=== PATIENT | female | born 1945 | race Caucasian/White ===

== ENCOUNTER → 2017-10-24 | Outpatient (CLI) | payer MEDICARE | LOC: CT 12:27 | PROVIDERS: ATTEND Internal Medicine | DX: Z12.31 Encounter for screening mammogram for malignant neoplasm of breast (principal) | CPT/HCPCS: 77067 ==

== ENCOUNTER → 2017-10-25 | Outpatient (CLI) | payer MEDICARE ==
[~2017-10-25] MED LIST: IOPAMIDOL 370 MG/ML 200 ML INFUS..BTL INJ ONE; SODIUM CHLORIDE 0.9% 50ML 50 ML ONE
--- NOTE | 2017-10-25 14:13 | Diagnostic Imaging Report ---
PROCEDURE:ULTRASOUND ABD AORTA W/DOC SCR COMPARISON:None. INDICATIONS:AAA SCREEN, ABDOMINAL HERNIA, ABDOMINAL TENDERNESS, HYPERTENSION FINDINGS: Exam limited by patient's body habitus. Transverse and sagittal images of the aorta were performed. Proximal aorta: 1.9 x 1.9 x 2.4 cm. Mid aorta: 1.4 x 1.2 x 2.2 cm. Distal aorta 0.9 x 1.1 x 1.3 cm. Atherosclerotic plaque is noted in the distal abdominal aorta. Vessel is patent, with normal arterial waveforms. CONCLUSION: 1. No sonographic evidence of AAA. 2. Atherosclerotic disease of the distal abdominal aorta. Hira Cordova M.D. Dictated by: Hira Cordova M.D. on 10/25/2017 at 14:17 Electronically approved by: Hira Cordova M.D. on 10/25/2017 at 14:17
--- NOTE | 2017-10-25 16:43 | Diagnostic Imaging Report ---
PROCEDURE:US GUIDANCE FOR VASCULAR ACCESS COMPARISON:None. INDICATIONS:IV access FINDINGS:Ultrasound evaluation of potential access sites was performed. After successfully identifying a patent vessel, US guidance was used to puncture the vein. A permanent recording was created for the patient record. CONCLUSION:Successful IV access by Ultrasound guidance. Hira Cordova M.D. Dictated by: Hira Cordova M.D. on 10/25/2017 at 16:48 Electronically approved by: Hira Cordova M.D. on 10/25/2017 at 16:48
--- NOTE | 2017-10-25 17:02 | Diagnostic Imaging Report ---
PROCEDURE: CT ABDOMEN WITH CONTRAST TECHNIQUE: The abdomen was scanned utilizing a multidetector helical scanner from the diaphragm to the iliac crest after the IV administration of 100 cc of Isovue 370 and the oral administration of water. Coronal and sagittal multiplanar reformations were obtained. COMPARISON: None. INDICATIONS: UPPER ABDOMINAL PAIN, HERNIA FINDINGS: LOWER THORAX: Linear opacities seen bilateral medial lower lobes, likely representing subsegmental atelectasis or scarring. Small to moderate hiatal hernia. HEPATOBILIARY: No focal hepatic lesions. Normal hepatic contour. Mild prominence of the central intrahepatic bile ducts. Moderate dilation of the common bile duct, which measures 1.1 cm At the javad hepatis. Cholecystectomy clips. SPLEEN: No splenomegaly. PANCREAS: No focal masses or ductal dilatation. ADRENALS: No adrenal nodules. KIDNEYS: No hydronephrosis, stones, or solid mass lesions. Cortical scarring in the superior poles of bilateral kidneys (series 2, images 31 and 21). PERITONEUM / RETROPERITONEUM: No free air or fluid. LYMPH NODES: No lymphadenopathy. VESSELS: Atherosclerotic calcification of the infrarenal abdominal aorta and proximal vessels. Celiac trunk, superior and inferior mesenteric, and bilateral renal arteries are patent. Portal, superior mesenteric, and splenic veins are patent. GI TRACT: Visualized bowel shows no dilation or obstruction. BONES AND SOFT TISSUES: No aggressive lytic lesions. Multilevel degenerative disc changes in the lower thoracic and lumbosacral spine. T10-T11 fusion. 4.5 x 2.0 x 3.3 cm fat-containing midline supraumbilical fat containing ventral abdominal hernia (series 2, image 30, and sagittal image 78), with a hernia neck measuring 0.7 x 0.6 cm. Adjacent paramedian 2.2 x 1.8 x 1.6 cm fat-containing density with linear peripheral hyperdensity suggesting calcification (series 2 image 32). IMPRESSION: 1. No acute abdominopelvic abnormalities. 2. 4.5 cm midline supraumbilical fat containing ventral abdominal hernia. 3. Adjacent 2.2 cm fat-containing density with linear peripheral hyperdensity, suggesting calcification may represent area of fat necrosis secondary to previous injection. 4. Mild prominence of the central intrahepatic bile duct and moderate dilation of the common bile duct likely reflecting post cholecystectomy status. Hira Cordova M.D. Dictated by: Hira Cordova M.D. on 10/25/2017 at 17:06 Electronically approved by: Hira Cordova M.D. on 10/25/2017 at 17:06
== END ==
LOC: US 12:20
PROVIDERS: ATTEND Internal Medicine
DX: Z12.31 Encounter for screening mammogram for malignant neoplasm of breast (principal); R10.84 Generalized abdominal pain; K45.8 Other specified abdominal hernia without obstruction or gangrene
CPT/HCPCS: 74160; 76706; 76937; 93306; 93880; 93922; 93925; Q9967